=== PATIENT | male | born 1940 | race Caucasian/White ===

== ENCOUNTER 2019-12-17 13:00 | Outpatient (RCR) | payer MEDICAID, SELFPAY | END 2019-12-17 23:59 | disposition home or self-care (01) | LOC: ANHAUDIO 13:00 | PROVIDERS: PCP Physician Assistant; Visit Provider Physician Assistant | DX: Z46.1 Encounter for fitting and adjustment of hearing aid (principal) | CPT/HCPCS: 99199 ==

== ENCOUNTER 2020-02-11 14:42 | Outpatient (CLI) | payer MEDICARE, MEDICAID, SELFPAY ==
--- NOTE | 2020-02-14 08:30 | WPDPFTINT ---
PFT Interpretation PFT Interpretation: This PFT met all criteria for ATS standards and reproducibility for lung volumes and diffusion capacity but the patient had difficulty with exhalation during spirometry making it inaccurate FEV/FVC 83% FEV1 85% FVC 66% No bronchodilator challenge TLC 140% RV 209% RV/TLC 68% DLCO 91% when adjusted for alveolar volume but not adjusted for hemoglobin Flow volume loops were un interpretable Impression: Spirometry may be inaccurate due patient technique and hence cannot commend on obstruction or lack thereof. Hyperinflation and air trapping are present. This pattern may be suggestive of COPD. Clinical correlation is advised.
== END 2020-02-11 14:43 | disposition home or self-care (01) ==
PROVIDERS: Visit Provider Internal Medicine Cardiovascular Disease
DX: R06.00 Dyspnea, unspecified (principal); Z72.0 Tobacco use
CPT/HCPCS: 94375; 94726; 94729

== ENCOUNTER 2020-09-13 10:53 | Emergency (ER) | payer MEDICARE, MEDICAID, SELFPAY ==
--- NOTE | ~2020-09-13 | XR_ITS ---
EXAMINATION: XR finger 1st RT min 2V EXAM DATE: 09/13/2020 11:23 INDICATION: chainsaw to left distal thumb yesterday. TECHNIQUE: Left thumb frontal, lateral and oblique projections obtained and reviewed. There is no prior study for comparison. FINDINGS: There are no acute fractures or dislocations identified. There is no subcutaneous gas. La rge laceration at the left 1st finger tip. There are no radiopaque foreign bodies. IMPRESSION: Left 1st finger soft tissue injury. Reviewed, dictated and finalized at location B.
--- NOTE | 2020-09-13 11:03 | ED.WOUNDLAC ---
HPI - Wound/Laceration General Chief Complaint: Wound/Laceration Stated Complaint: Laceration on thumb Time Seen by Provider: 09/13/20 11:03 Source: patient and RN notes reviewed Mode of arrival: ambulatory Limitations: no limitations History of Present Illness HPI narrative: 80-year-old male presents to the [facility] with a injury to his left thumb from yesterday, sometime last night (9 and 10 PM). States that he was cutting wood on a table saw when he got his thumb. Son states that it happened at least 15 hours prior to arrival. Multiple areas of skin is missing. Bleeding is controlled. Patient does not have a primary care provider. Has full range of motion. Unknown last tetanus. Related Data Home Medications Medication Instructions Recorded Confirmed amlodipine 10 mg PO DAILY 09/13/20 09/13/20 atorvastatin 40 mg PO DAILY 09/13/20 09/13/20 isosorbide mononitrate 30 mg PO DAILY 09/13/20 09/13/20 lisinopril 10 mg PO DAILY 09/13/20 09/13/20 nitroglycerin 0.4 mg SUBLINGUAL .PRN 09/13/20 09/13/20 pantoprazole 40 mg PO DAILY 09/13/20 09/13/20 Allergies Allergy/AdvReac Type Severity Reaction Status Date / Time acetaminophen Allergy Unknown Hives Verified 09/13/20 11:40 ibuprofen Allergy Unknown Dizziness Verified 09/13/20 11:40 meperidine Allergy Unknown Other Verified 09/13/20 11:40 Penicillins Allergy Unknown Hives Verified 09/13/20 11:40 Review of Systems Review of Systems: All systems reviewed & are unremarkable except as noted in HPI and below Constitutional: Constitutional: Reports no additional constitutional complaints, Denies chills and Denies fever(s) ENT: Reports system reviewed and no additional complaints, except as documented Cardiovascular: Cardiovascular: Reports no additional cardiovascular complaints Respiratory: Respiratory: Reports no additional respiratory complaints Musculoskeletal: Musculoskeletal: Reports no additional musculoskeletal complaints Integumentary/Breasts: Skin/Breast: Reports as per HPI Comments: Maceration of skin with multiple pieces of skin missing, Neurologic: Reports system reviewed and no additional complaints, except as documented Psychiatric: Psychiatric: Reports no additional psychiatric complaints Allergic/Immunologic: Allergic/Immunologic: Reports no additional allergic/immunologic complaints [facility] Family History Family History Father Family history of cardiovascular disease Mother Family history of cardiovascular disease Sibling Family history of cardiovascular disease Social History Social History Smoking status: Never smoker Alcohol intake: never Comments At the time of my signature, I reviewed and agree with the nursing past medical, surgical, social, and family history. There is no relevant family history pertinent to the patient complaint. Exam Const: General: no acute distress, alert and ill appearing chronically Nutritional Appearance: well nourished Other: Patient alert and oriented x2, very hard of hearing. Son is giving all information. HENMT: Head: normal to inspection Neck: Neck: normal visual inspection Chest: Chest palpation & inspection: normal inspection of the chest Resp: Effort & Inspection: normal respiratory effort and no use of accessory muscles Auscultation: clear to auscultation bilaterally, no crackles, no rales, no rhonchi and no wheezes Cardio: Rate: regular rate Rhythm: regular rhythm Back/Spine/Pelvis: Back: no CVA tenderness Skin: Wounds: wounds noted avulsion left distal thumb other (Laceration of the skin surrounding. Multiple pieces of skin missing.) Neuro: General: moves all extremities and no meningeal signs Speech: normal speech Gait exam (Neuro): Normal gait present Extrem: General: normal to inspection Psych: Appearance: well kempt Affect: normal affect Other: Son states that he is just extreme
[2020-09-13 11:07] VITALS: BP 127/72; PULSE 81; RESP 16; TEMP 36.8; O2SAT 97
[2020-09-13] MEDS: TETANUS,DIPHTHERIA,AC PERTUSSIS ADULT (0.5 ML) BOOSTRIX IM (11:30)
== END 2020-09-13 12:25 | disposition home or self-care (01) ==
PROVIDERS: Emergency Provider Nurse Practitioner
DX: S61.002A Unspecified open wound of left thumb without damage to nail, initial encounter (principal); W31.2XXA Contact with powered woodworking and forming machines, initial encounter; Z23 Encounter for immunization; I25.10 Atherosclerotic heart disease of native coronary artery without angina pectoris; Z95.5 Presence of coronary angioplasty implant and graft; E78.00 Pure hypercholesterolemia, unspecified; I10 Essential (primary) hypertension; G47.30 Sleep apnea, unspecified; M19.90 Unspecified osteoarthritis, unspecified site; M10.9 Gout, unspecified; G25.81 Restless legs syndrome
CPT/HCPCS: 73140; 90471; 90715; 99213; G0463

== ENCOUNTER 2021-02-16 09:00 | Outpatient (RCR) | payer MEDICARE, SELFPAY | END 2021-02-16 23:59 | disposition home or self-care (01) | LOC: ANHAUDIO 09:00 | DX: Z46.1 Encounter for fitting and adjustment of hearing aid (principal) | CPT/HCPCS: 99199; V5014; V5264 ==

== ENCOUNTER 2021-09-06 09:30 | Outpatient (RCR) | payer OTHER, SELFPAY | END 2021-09-06 23:59 | disposition home or self-care (01) | LOC: ANHAUDIO 09:30 | PROVIDERS: PCP Physician Assistant; Visit Provider Physician Assistant | DX: Z46.1 Encounter for fitting and adjustment of hearing aid (principal) | CPT/HCPCS: 99199; V5014 ==